=== PATIENT | male | born 1990 | race American Indian/Alaskan Native ===

== ENCOUNTER 2019-02-09 11:24 | Inpatient (IN) | payer MEDICAID ==
[~2019-02-09] VITALS: Ht 180.3 cm; Wt 88.6 kg
[2019-02-09] MEDS ORDERED: hydrOXYzine 25 MG tablet PO PRN (12:20)
[2019-02-09] MEDS ORDERED: LORazepam 1 MG tablet PO PRN ×2 (12:20→19:35)
[2019-02-09] MEDS ORDERED: loperamide 2mg capsule PO PRN (12:20)
[2019-02-09] MEDS ORDERED: magnesium hydroxide 30ml (MOM) UD suspension PO PRN (12:20)
[2019-02-09] MEDS ORDERED: mag hydrox/Alum hydrox/simeth 30ml oral suspension PO PRN (12:20)
[2019-02-09] MEDS ORDERED: acetaminophen 325mg tablet PO PRN ×2 (12:20)
[2019-02-09] MEDS ORDERED: NICOTINE POLACRILEX 2 MG LOZENGE BC PRN (12:20)
[2019-02-09] MEDS ORDERED: OLAN20TA19 PO (13:35)
[2019-02-09] MEDS ORDERED: GABA800T11 PO (13:35)
[2019-02-09] MEDS ORDERED: HYDR-3686 PO (13:35)
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
[2019-02-09 15:58] VITALS: BP 130/89
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
[2019-02-09] MEDS ORDERED: haloperidol 5mg tablet PO PRN (19:35)
[2019-02-09 20:02] VITALS: BP 136/91
[2019-02-09] MEDS: OLANZapine 2.5MG tablet PO SCH (20:06)
[2019-02-09] MEDS ORDERED: LORazepam 1 MG tablet PO ONE (21:00)
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
[2019-02-10 08:00] VITALS: BP 116/79
[2019-02-10] MEDS ORDERED: nicotine 21mg patch - 24 hr TD SCH (08:00)
[2019-02-10 08:17] LABS: HEMOGLOBIN A1C 5.3 % (4.5-6.2)
[2019-02-10 08:21] LABS: CHOL/HDL RATIO 6.9 (0.00-4.99); CHOLESTEROL 213 MG/DL (0-200); HDL CHOLESTEROL 31 MG/DL (35-60); LDL CHOLESTEROL 153 MG/DL (50-100); TRIGLYCERIDES 177 MG/DL (20-135)
[2019-02-10] MEDS ORDERED: NO HOME MEDS (10:35)
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
[2019-02-10 19:41] VITALS: BP 135/87
[2019-02-10] MEDS: OLANZapine 2.5MG tablet PO SCH (20:05)
[2019-02-10] MEDS ORDERED: hydrOXYzine 25 MG tablet PO PRN (20:25)
[2019-02-10] MEDS: hydrOXYzine 25 MG tablet PO SCH (21:00)
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
[2019-02-11 07:07] VITALS: BP 140/84
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
[2019-02-11 20:45] VITALS: BP 115/77
[2019-02-11] MEDS: OLANZapine 2.5MG tablet PO SCH (20:46)
[2019-02-11] MEDS: hydrOXYzine 25 MG tablet PO SCH (20:46)
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
[2019-02-12 08:00] VITALS: BP 132/92
[2019-02-12] MEDS ORDERED: HYDR-3686 PO (09:13)
[2019-02-12] MEDS ORDERED: OLAN2.5T28 PO (09:13)
--- NOTE | 2019-02-12 16:21 | NUR ---
Nursing Discharge Note: Pt discharged from [facility] to home via a [employer] charter coach driver. Pt reports no thoughts of harming others or himself and has been improving since admission. Pt calm and cooperative in pleasant mood and excited to get back home. He is in no emotional or physical distress. Pt continues to communicate via writing or gestures. Pt's belongings inventoried and returned to him. Pt understands discharge instructions and he did not want nicotine replacement.
== END 2019-02-12 16:06 | disposition home or self-care (01) | DRG 750 ==
LOC: ADULT MH 12:09
PROVIDERS: ADMIT Psychiatry & Neurology Psychiatry; ATTEND Psychiatry & Neurology Psychiatry
DX: F20.9 Schizophrenia, unspecified (principal); E11.9 Type 2 diabetes mellitus without complications; F10.10 Alcohol abuse, uncomplicated; F41.9 Anxiety disorder, unspecified; F44.9 Dissociative and conversion disorder, unspecified; F94.0 Selective mutism; Z56.0 Unemployment, unspecified
CPT/HCPCS: 36415; 80061; 83036; 87081; Z7610